=== PATIENT | female | born 1960 | race Hispanic/Latino ===

== ENCOUNTER 2019-05-30 05:47 | Day surgery (SDC) | payer OTHER ==
[~2019-05-30 05:47] MED LIST: SODIUM CHLORIDE 0.9% 1000ML 1,000 ML IV ONE; [UNRECOGNIZED DRUG - OTHER] PO
[2019-05-30] MEDS ORDERED: SODIUM CHLORIDE 0.9% 1000ML 1,000 ML IV ONE (06:28)
[2019-05-30 06:45] VITALS: BP 137/80
[2019-05-30] MEDS ORDERED: CLINDAMYCIN HCL PO (07:15)
[2019-05-30] MEDS ORDERED: FENTANYL CITRATE PF 50 MCG/1 ML 2ML VIAL ONE (08:26)
[2019-05-30] MEDS ORDERED: PROPOFOL 10 MG/ML 20ML VIAL IV ONE ×2 (08:26)
[2019-05-30 08:40] VITALS: BP 112/70
[2019-05-30 08:45] VITALS: BP 114/69
[2019-05-30 08:50] VITALS: BP 128/67
== END 2019-05-30 09:05 | disposition home or self-care (01) ==
LOC: DAH 05:47 → ENDO 05:47
PROVIDERS: ATTEND Internal Medicine Gastroenterology
DX: Z12.11 Encounter for screening for malignant neoplasm of colon (principal); K64.0 First degree hemorrhoids; K74.60 Unspecified cirrhosis of liver; I85.10 Secondary esophageal varices without bleeding; K31.89 Other diseases of stomach and duodenum; K76.6 Portal hypertension
CPT/HCPCS: 43239; A4215; A4221; A4222; A4223; A4606; A4615; A4663; G0121; J2704 ×2; J3010; J7030 ×2

== ENCOUNTER 2020-10-14 07:12 | Day surgery (SDC) | payer BC ==
[2020-10-14] VITALS (7 sets, daily range): BP systolic 98–153; BP diastolic 59–74
[~2020-10-14] VITALS: Ht 162.6 cm; Wt 73.0 kg
[~2020-10-14 07:12] MED LIST changes: +0.9%NACL 1000ML 1,000 ML IV ONE; +CLINDAMYCIN HCL PO; -SODIUM CHLORIDE 0.9% 1000ML 1,000 ML IV ONE
[2020-10-14] MEDS ORDERED: PROPOFOL 10 MG/ML 20ML VIAL IV ONE ×2 (10:40→10:50)
== END 2020-10-14 11:30 | disposition home or self-care (01) ==
LOC: ENDO 07:12 → DAH 07:12 → ENDO 11:30
PROVIDERS: ATTEND Internal Medicine
DX: I85.10 Secondary esophageal varices without bleeding (principal); Z20.822 Contact with and (suspected) exposure to COVID-19; K74.60 Unspecified cirrhosis of liver; K31.89 Other diseases of stomach and duodenum; Z79.899 Other long term (current) drug therapy
CPT/HCPCS: 43244; 87635; A4215; A4221; A4606; A4620; A4657 ×2; A4663; C9803; J2704 ×2; J7030 ×2